=== PATIENT | female | born 1950 | race Caucasian/White ===

== ENCOUNTER → 2016-10-31 | Outpatient (CLI) | payer MEDICARE, BC | END | disposition home or self-care (01) | LOC: GMAB 14:12 | PROVIDERS: ATTEND Family Medicine | DX: R53.83 Other fatigue (principal) ==

== ENCOUNTER → 2017-05-02 | Outpatient (CLI) | payer BC, MEDICARE | LOC: GMAB 15:30 | PROVIDERS: ATTEND Family Medicine | DX: Z79.899 Other long term (current) drug therapy (principal) ==

== ENCOUNTER 2017-06-01 15:01 | Emergency (ER) | payer MEDICARE ==
[2017-06-01 15:22] VITALS: TEMP 98.2
--- NOTE | 2017-06-01 15:39 | ED.PDOC ---
History of Present Illness - General Chief Complaint: Neuro Symptoms/Deficits Stated Complaint: twitching/frequent fall Time Seen by Provider: 06/01/17 15:36 Source: family - Exam Limitations: no limitations - History of Present Illness Initial Comments: Carmella Manuel 67 y/o female brought by after she had been twitching more often and also noted have unsteady gait and almost falling sometimes with hand tremor/twitching almost drop a cup . noticed last month went to see her neurologist and was told she was doing fine.Has Parkinsons and dementia Timing/Duration: getting worse Severity: moderate Improving Factors: nothing Worsening Factors: other - has parkinsons Associated Symptoms: other - see hpi Allergies/Adverse Reactions: Allergies NO KNOWN ALLERGY Allergy (Verified 11/12/14 07:18) Home Medications: Ambulatory Orders Donepezil Hydrochloride [Aricept] 10 mg PO BEDTIME 10/27/14 Venlafaxine HCl [Venlafaxine HCl ER] 37.5 mg PO BID 10/27/14 Lubiprostone [Amitiza] 24 mcg PO BID 10/28/14 Carbidopa-Levodopa [Carbidopa/Levodopa 25-100 mg] 2 tab PO TID 11/03/14 Polyethylene Glycol 3350 [Miralax] 17 gm PO DAILY #0 pckt 11/03/14 Pravastatin Sodium [Pravastatin Sodium] 20 mg PO DAILY 06/01/17 Prazosin HCl [Prazosin HCl] 2 mg PO DAILY 06/01/17 Review of Systems - Review of Systems Constitutional: States: no symptoms reported EENTM: States: no symptoms reported Cardiology: States: no symptoms reported Neurological: States: see HPI, other - parkinsons/dementia Unable to Obtain Due To: dementia All other Systems: Reviewed and Negative, No Change from Baseline Past Medical History (General) - Patient Medical History Hx Seizures: No Hx Stroke: No Hx Dementia: Yes Hx Asthma: No Hx of COPD: No Hx Cardiac Disorders: Yes - hypercholesterolemia Hx Congestive Heart Failure: No Hx Pacemaker: No Hx Hypertension: Yes Hx Thyroid Disease: No Hx Diabetes: No Hx Cancer: No Hx MRSA: No - Vaccination History Hx Tetanus, Diphtheria Vaccination: No Hx Influenza Vaccination: No Hx Pneumococcal Vaccination: Yes - 2017 - Social History Hx Tobacco Use: No Hx Alcohol Use: No Hx Substance Use: No Hx Physical Abuse: No Hx Emotional Abuse: No Family Medical History - Family History Mother Family History: No Known Living Status: Hx Family Stroke: Yes Hx Family;Other: Parkinson's Father Family History: Unknown Living Status: Hx Family Cancer: Yes Physical Exam - Physical Exam General Appearance: Alert, No apparent distress, Well Groomed Eye Exam: bilateral normal Ears, Nose, Throat: hearing grossly normal, normal ENT inspection Neck: non-tender, full range of motion, supple Respiratory: lungs clear, normal breath sounds, no respiratory distress Cardiovascular/Chest: normal peripheral pulses, regular rate, rhythm, no murmur Peripheral Pulses: radial,right: 2+, radial,left: 2+ Gastrointestinal/Abdominal: normal bowel sounds, non tender, soft, no organomegaly Back Exam: no CVA tenderness, no vertebral tenderness Extremity: non-tender, no pedal edema, no calf tenderness Neurologic: 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 II-XII nml as tested, no motor/sensory deficits, alert, disoriented x 3 - place, other - negative pronator drift;visible tremors and twitching arms amd lower extremities Progress - Progress Progress: 06/01/17 16:47 Vital Signs - 8 hr 06/01/17 06/01/17 15:14 16:09 Temperature 98.2 F Pulse Rate [ 75 84 Left Radial] Respiratory 18 18 Rate Blood Pressure 150/89 112/87 [Left Arm] O2 Sat by Pulse 95 93 L Oximetry 06/01/17 17:26 Able to walk to the bathroom assisting her - Results/Orders Results/Orders: 06/01/17 15:46 URINALYSIS Stat 06/01/17 16:00 EKG STAT Laboratory Results - last 24 hr 06/01/17 16:18 WBC 6.1 RBC 4.64 Hgb 12.9 Hct 38.3 MCV 82.6 MCH 27.8 MCHC 33.7 RDW 13.4 Plt Count 246 MPV 7.2 L Absolute Neuts (auto) 3.80 Absolute Lymphs (auto) 1.70 Absolute Monos (auto) 0.40 Absolute Eos (auto) 0.10 Absolute Basos (auto) 0.00 Neutrophils % 63.2 Lymphocytes % 28.4 Monocytes % 6.8 Eosinophils % 0.9 L Basophils % 0.7 PT 12.6 H INR 1.120 PTT (SP) 32.7 Sodium 140 Potassium 3.7 Chloride 105 Carbon Dioxide 28 Anion Gap 10.7 L BUN 20 H Creatinine 0.77 BUN/Creatinine Ratio 26.0 H Random Glucose 100 Serum Osmolality 282.1 Calcium 9.5 Magnesium 2.2 Total Bilirubin 0.7 Direct Bilirubin < 0.1 Indirect Bilirubin 0.6 AST 18 ALT < 8 L Alkaline Phosphatase 63 Creatine Kinase 109 CK-MB (CK-2) 1.8 CK-MB (CK-2) % Not Reportable Troponin I < 0.02 Serum Total Protein 6.8 Albumin 4.0 - EKG/XRAY/CT EKG: Sinus Comments: HR-73;short pr XRAY: shoulder no fracture - no acute abnormality CT Ordered: Yes - head -no acute intracranial abnormality Departure - Departure Clinical Impression: Muscle twitch, Pill rolling tremors, History of Parkinson's disease Dementia in Parkinson's disease Qualifiers: Dementia behavioral disturbance: without behavioral disturbance Qualified Code( s): G20 - Parkinson's disease; F02.80 - Dementia in other diseases classified elsewhere without behavioral disturbance Time of Disposition: 17:46 Disposition: Discharge to Home or Self Care Condition: Fair Departure Forms: ED Discharge - Pt. Copy, Patient Portal Self Enrollment Referrals: Eulalio Rayo MD [Primary Care Provider] - 1-2 Weeks Home Medications: Ambulatory Orders Donepezil Hydrochloride [Aricept] 10 mg PO BEDTIME 10/27/14 Venlafaxine HCl [Venlafaxine HCl ER] 37.5 mg PO BID 10/27/14 Lubiprostone [Amitiza] 24 mcg PO BID 10/28/14 Carbidopa-Levodopa [Carbidopa/Levodopa 25-100 mg] 2 tab PO TID 11/03/14 Polyethylene Glycol 3350 [Miralax] 17 gm PO DAILY #0 pckt 11/03/14 Pravastatin Sodium [Pravastatin Sodium] 20 mg PO DAILY 06/01/17 Prazosin HCl [Prazosin HCl] 2 mg PO DAILY 06/01/17 Additional Instructions: Return to emergency room as needed;Need to call up neurologist 06/04 2017 for follow up
--- NOTE | 2017-06-01 16:29 | RAD ---
EXAM DESCRIPTION: Chest,1 View CLINICAL HISTORY: History of Parkinson disease and fall COMPARISON: Chest radiograph dated October 28, 2014 IMPRESSION: Single upright portable AP view of the chest. Low lung volumes with associated bronchovascular crowding. Cardiac silhouette and pulmonary vascularity are within normal limits. Calcific atherosclerosis noted of the thoracic aorta. Linear opacities within the bilateral lung bases most likely represent atelectasis. Underlying infiltrate cannot be excluded. No significant pleural effusion. No pneumothorax. The left shoulder joint is incompletely imaged. Question of artifact versus minimally displaced fracture of the acromion/left scapula, partially imaged. Please correlate for tenderness versus trauma to the left shoulder joint. Electronically signed by: Ozzie Del Real MD 06/01/2017 4:29 PM CDT
--- NOTE | 2017-06-01 16:39 | CT ---
EXAM DESCRIPTION: CT-Head-CT head without contrast. CLINICAL HISTORY: fall. Head injury. COMPARISON: None available TECHNIQUE: Multiple axial images of the head without contrast. Multiplanar reformatted images. This exam was performed according to our departmental dose-optimization program, which includes automated exposure control, adjustment of the mA and/or kV according to patient size and/or use of iterative reconstruction technique. FINDINGS: There is no CT evidence of intracranial hemorrhage, mass effect, or large territory infarction. Mild generalized volume loss. Mild patchy supratentorial white matter hypodensities. There are no abnormal extra-axial fluid collections. Vascular structures are unremarkable. There is no acute calvarial defect. Visualized portions of the right maxillary sinus are completely opacified. The mastoid air cells are clear. IMPRESSION: 1. No CT evidence of an acute intracranial abnormality. 2. Mild senescent changes. 3. Opacified right maxillary sinus. Electronically signed by: Chas Reardon MD 06/01/2017 4:38 PM CDT
--- NOTE | 2017-06-01 16:55 | RAD ---
EXAM DESCRIPTION: Shoulder,Left 2 or More Views CLINICAL HISTORY: fall COMPARISON: None Available. TECHNIQUE: Two views of the left shoulder. FINDINGS: Post submitted views are internal rotation. A true external rotation view is needed versus transaxillary or transscapular Y views. There is no fracture or dislocation. There are no significant degenerative changes observed. AC joint appears intact. No focal bone lesion. IMPRESSION: No definite fracture or dislocation on internal rotation views of the left shoulder. See above. Electronically signed by: Korey Bailey MD 06/01/2017 4:54 PM CDT
[2017-06-01 18:10] VITALS: BP 114/82; O2SAT 94
== END 2017-06-01 18:22 | disposition home or self-care (01) ==
LOC: ER 15:01
DX: G31.83 Neurocognitive disorder with Lewy bodies (principal); F02.80 Dementia in other diseases classified elsewhere, unspecified severity, without behavioral disturbance, psychotic disturbance, mood disturbance, and anxiety; E78.00 Pure hypercholesterolemia, unspecified; I10 Essential (primary) hypertension; R26.81 Unsteadiness on feet; Z79.899 Other long term (current) drug therapy

== ENCOUNTER 2017-06-08 12:45 | Emergency (ER) | payer MEDICARE ==
[2017-06-08 13:02] VITALS: TEMP 97.5
--- NOTE | 2017-06-08 13:05 | ED.PDOC ---
History of Present Illness - General Chief Complaint: Neuro Symptoms/Deficits Stated Complaint: confusion Time Seen by Provider: 06/08/17 12:56 Source: patient Exam Limitations: no limitations - History of Present Illness Timing/Duration: 1 hour - [employer] Severity: moderate Improving Factors: nothing Worsening Factors: nothing Associated Symptoms: other - NONE REPORTED BY HER Allergies/Adverse Reactions: Allergies NO KNOWN ALLERGY Allergy (Verified 06/08/17 13:02) Home Medications: Ambulatory Orders Donepezil Hydrochloride [Aricept] 10 mg PO BEDTIME 10/27/14 Venlafaxine HCl [Venlafaxine HCl ER] 37.5 mg PO BID 10/27/14 Lubiprostone [Amitiza] 24 mcg PO BID 10/28/14 Carbidopa-Levodopa [Carbidopa/Levodopa 25-100 mg] 2 tab PO TID 11/03/14 Polyethylene Glycol 3350 [Miralax] 17 gm PO DAILY #0 pckt 11/03/14 Pravastatin Sodium [Pravastatin Sodium] 20 mg PO DAILY 06/01/17 Prazosin HCl [Prazosin HCl] 2 mg PO DAILY 06/01/17 Past Medical History (General) - Patient Medical History Hx Seizures: No Hx Stroke: No Hx Dementia: Yes Hx Asthma: No Hx of COPD: No Hx Cardiac Disorders: Yes - hypercholesterolemia Hx Congestive Heart Failure: No Hx Pacemaker: No Hx Hypertension: Yes Hx Thyroid Disease: No Hx Diabetes: No Hx Cancer: Yes - skin Hx MRSA: No Surgical History: other - Vaccination History Hx Tetanus, Diphtheria Vaccination: No Hx Influenza Vaccination: No Hx Pneumococcal Vaccination: Yes - 2017 - Social History Hx Tobacco Use: No Hx Alcohol Use: No Hx Substance Use: No Hx Physical Abuse: No Hx Emotional Abuse: No Family Medical History - Family History Mother Family History: No Known Living Status: Hx Family Stroke: Yes Hx Family;Other: Parkinson's Father Family History: Unknown Living Status: Hx Family Cancer: Yes Progress - EKG/XRAY/CT XRAY: chest - MARILEE Departure - Departure Clinical Impression: Parkinson disease Dementia Qualifiers: Dementia type: Parkinson's disease Dementia behavioral disturbance: without behavioral disturbance Qualified Code(s): G20 - Parkinson's disease; F02.80 - Dementia in other diseases classified elsewhere without behavioral disturbance Time of Disposition: 15:21 Disposition: Discharge to Home or Self Care Condition: Fair Departure Forms: ED Discharge - Pt. Copy, Patient Portal Self Enrollment Instructions: Lewy Body Disease Referrals: Eulalio Rayo MD [Primary Care Provider] - 1-2 Weeks Home Medications: Ambulatory Orders Donepezil Hydrochloride [Aricept] 10 mg PO BEDTIME 10/27/14 Venlafaxine HCl [Venlafaxine HCl ER] 37.5 mg PO BID 10/27/14 Lubiprostone [Amitiza] 24 mcg PO BID 10/28/14 Carbidopa-Levodopa [Carbidopa/Levodopa 25-100 mg] 2 tab PO TID 11/03/14 Polyethylene Glycol 3350 [Miralax] 17 gm PO DAILY #0 pckt 11/03/14 Pravastatin Sodium [Pravastatin Sodium] 20 mg PO DAILY 06/01/17 Prazosin HCl [Prazosin HCl] 2 mg PO DAILY 06/01/17
--- NOTE | 2017-06-08 13:49 | CT ---
EXAM DESCRIPTION: Head: Computed Tomography. CLINICAL HISTORY: AMS COMPARISON: CT scan of the head without contrast 06/01/2017. TECHNIQUE: Non-helical axial scans through the skull and brain, at 5.0 mm intervals, non-contrast. 2.5 mm axial reconstructions. 2.0 mm coronal and sagittal reconstructions. Total Exam DLP: 859.97 mGy-cm. This exam was performed according to our departmental dose-optimization program which includes automated exposure control, adjustment of the mA and/or kV according to patient size and/or use of iterative reconstruction technique; to reduce radiation dose to as low as reasonably achievable (ALARA). FINDINGS: No hemorrhage, no mass-effect, and no midline shift. Minimum bilateral periventricular regions of decreased density of the white matter, relatively symmetric. No abnormal radiodense material in the brain parenchyma. Vascular calcifications not present; physiologic calcifications in the pineal gland and choroid plexus. No effacement or displacement of the ventricles, CSF spaces, or subdural spaces. No extra axial fluid collection or hemorrhage. No gross abnormalities of the bony calvarium. Minimal volume and almost complete opacification of the right maxillary antrum. Marika bullosa in the bilateral middle turbinates. Right septal deviation. Maintaining paranasal sinuses and mastoid air cells are unremarkable. IMPRESSION: 1. No hemorrhage, no mass effect, no midline shift. . 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 Stable since prior and CT scan one week ago. Also stable chronic/acute right maxillary sinusitis and other paranasal sinus abnormalities. 2. CT scans are insensitive for detecting small CVAs in the first 24 hours after onset. Evaluation of the brain stem is also limited. If symptoms persist, consider MRI scan of the brain with diffusion imaging. Electronically signed by: Jeronimo Dc MD 06/08/2017 1:47 PM CDT
--- NOTE | 2017-06-08 14:25 | RAD ---
EXAM DESCRIPTION: Chest,1 View CLINICAL HISTORY: AMS COMPARISON: Portable upright chest 06/01/2017. CT scan of the head without contrast today. TECHNIQUE: AP portable taken at 1311 hours, upright position. FINDINGS: No acute infiltrate or pleural effusion. No pneumothorax. Cardiopulmonary vascular structures are unremarkable. No gross bony thoracic abnormalities. IMPRESSION: No radiographic evidence of acute cardiopulmonary disease. Electronically signed by: Jeronimo Dc MD 06/08/2017 2:23 PM CDT
[2017-06-08 14:32] VITALS: BP 146/71; O2SAT 97
== END 2017-06-08 15:30 | disposition home or self-care (01) ==
LOC: ER 12:45
DX: G20 Parkinson's disease (principal); F02.80 Dementia in other diseases classified elsewhere, unspecified severity, without behavioral disturbance, psychotic disturbance, mood disturbance, and anxiety; I10 Essential (primary) hypertension; E78.00 Pure hypercholesterolemia, unspecified; Z85.828 Personal history of other malignant neoplasm of skin

== ENCOUNTER → 2017-06-13 | Outpatient (CLI) | payer MEDICARE ==
--- NOTE | 2017-06-14 15:50 | US ---
THYROID ULTRASOUND CLINICAL INFORMATION: Thyroid nodule TECHNIQUE: Thyroid sonography was performed. COMPARISON: None FINDINGS: Thyroid size: Right lobe measures 4.5 x 1.5 x 2.1 cm. Left lobe measures 3.9 x 0.9 x 2 cm. Isthmic thickness in the midline is 2.6 mm. Texture: Coarse texture with nodules. Estimated total number of nodules >/=1 cm: 1 Right In the inferior right thyroid lobe, a mixed cystic and solid nodule with few punctate calcifications measures 1.4 x 1.6 x 1.3 cm. Fine-needle aspiration biopsy should be considered for a nodule of this size, especially with potential internal microcalcifications. Small nodule in the upper right thyroid lobe measures 0.7 x 0.5 x 0.3 cm. This could be followed. Hypoechoic lesion along the posterior aspect of the right thyroid lobe may be intrathyroidal consistent with another nodule 6 mm in greatest dimension. Alternatively this could be a small parathyroid adenoma. Correlate with serum calcium values. Left Small posterior inferior left thyroid nodule measures 0.6 x 0.3 x 0.3 cm. Another tiny nodule closely adjacent measures 3 mm in greatest dimension. No dominant nodule in the left lobe. No anterior cervical adenopathy is seen on the submitted images. IMPRESSION: Dominant cystic and solid nodule with few microcalcifications in the inferior right thyroid lobe measuring 1.6 cm in greatest dimension. Further evaluation is recommended as discussed above. Electronically signed by: Korey Bailey MD 06/14/2017 3:47 PM CDT
== END ==
LOC: US 14:36
PROVIDERS: ATTEND Family Medicine
DX: E04.1 Nontoxic single thyroid nodule (principal)

== ENCOUNTER → 2018-02-18 | Outpatient (CLI) | payer MEDICARE | LOC: GMAE 16:39 | PROVIDERS: ATTEND Family Medicine | DX: E78.2 Mixed hyperlipidemia (principal) ==

== ENCOUNTER → 2020-02-18 | Outpatient (CLI) | payer MEDICARE | LOC: BFHH 09:20 | PROVIDERS: ATTEND Family Medicine | DX: N39.0 Urinary tract infection, site not specified (principal) ==

== ENCOUNTER 2020-02-25 10:08 | Emergency (ER) | payer MEDICARE ==
--- NOTE | 2020-02-25 10:37 | RAD ---
EXAM DESCRIPTION: Chest,1 View CLINICAL HISTORY: 69 years Female, SOB COMPARISON: 06/08/2017 TECHNIQUE: Single view radiograph of the chest. IMPRESSION: Normal size cardiac silhouette. Airspace opacity in the right greater than left midlungs likely representing multifocal pneumonia versus viral infection. No pleural effusion or pneumothorax. Thoracic spondylosis. Electronically signed by: Rainer Andrade MD 02/25/2020 10:36 AM [facility]
[2020-02-25] MEDS ORDERED: cefTRIAXone SODIUM 2 GM in SODIUM CHL 0.9% 100ML MINI-BAG 100 ML IVPB ONE (10:57)
[2020-02-25] MEDS ORDERED: AZITHROMYCIN IV 500 MG in SODIUM CHLORIDE 0.9% 250ML 250 ML IVPB ONE (10:57)
--- NOTE | 2020-02-25 11:01 | ED.PDOC ---
History of Present Illness - General Chief Complaint: Respiratory Problem Time Seen by Provider: 02/25/20 10:15 Source: RN notes reviewed, EMS notes reviewed, family Exam Limitations: clinical condition - History of Present Illness Initial Comments: PATIENT HAS END STAGE PARKINSON'S DEMENTIA AND NOW HAS COVID-19. HAS BEEN GETTING HOSPICE CARE AT HOME. NOW SENT FOR DECREASING O2 SATS AT HOME INTO THE 80'S ON ROOM AIR. FEELS HE CAN NO LONGER CARE FOR HER AT HOME AND REQUEST SKILLED NURSING ADMISSION. Severity: moderate Activities at Onset: none Possible Cause: no prior episodes Improving Factors: nothing Associated Symptoms: denies symptoms Respiratory Risk Factors: no cause identified Allergies/Adverse Reactions: Allergies NO KNOWN ALLERGY Allergy (Verified 06/08/17 13:02) Home Medications: Ambulatory Orders Donepezil Hydrochloride [Aricept] 10 mg PO BEDTIME 10/27/14 Venlafaxine HCl [Venlafaxine HCl ER] 37.5 mg PO BID 10/27/14 Lubiprostone [Amitiza] 24 mcg PO BID 10/28/14 Carbidopa-Levodopa [Carbidopa/Levodopa 25-100 mg] 2 tab PO TID 11/03/14 Polyethylene Glycol 3350 [Miralax] 17 gm PO DAILY #0 pckt 11/03/14 Pravastatin Sodium 20 mg PO DAILY 06/01/17 Prazosin HCl 2 mg PO DAILY 06/01/17 Review of Systems - Review of Systems Constitutional: States: chills, fever EENTM: States: nose congestion Respiratory: States: cough, short of breath Cardiology: States: no symptoms reported Gastrointestinal/Abdominal: States: no symptoms reported Genitourinary: States: no symptoms reported Musculoskeletal: States: see HPI Skin: States: no symptoms reported Neurological: States: see HPI Endocrine: States: no symptoms reported Hematologic/Lymphatic: States: no symptoms reported Unable to Obtain Due To: dementia Past Medical History (General) - Patient Medical History Hx Seizures: No Hx Stroke: No Hx Dementia: Yes Hx Asthma: No Hx of COPD: No Hx Cardiac Disorders: Yes - hypercholesterolemia Hx Congestive Heart Failure: No Hx Pacemaker: No Hx Hypertension: Yes Hx Thyroid Disease: No Hx Diabetes: No Hx Cancer: Yes - skin Hx MRSA: No - Vaccination History Hx Tetanus, Diphtheria Vaccination: No Hx Influenza Vaccination: No Hx Pneumococcal Vaccination: Yes - 2017 - Social History Hx Tobacco Use: No Hx Alcohol Use: No Hx Substance Use: No Hx Physical Abuse: No Hx Emotional Abuse: No Family Medical History - Family History Mother Family History: No Known Living Status: Hx Family Stroke: Yes Hx Family;Other: Parkinson's Father Family History: Unknown Living Status: Hx Family Cancer: Yes Physical Exam - Physical Exam General Appearance: Emaciated, Frail, Lethargic, Ill Appearing Eyes, Ears, Nose, Throat Exam: PERRL/EOMI, normal ENT inspection, TMs normal, pharynx normal Progress - Progress Progress: 02/25/20 10:59 PATIENT WITH ADVANCED PARKINSON'S DEMENTIA CURRENTLY ON HOSPICE AND NOW ALSO WITH COVID-19 AND REDUCED O2 SATURATION THIS MORNING, SENT TO HOSPITAL BY . AWARE OF HER POOR PROGNOSIS AND THAT SHE IS LIKELY TO NOT DO WELL NO MATTER WHAT. AT THIS POINT, O2 AND COMFORTIVE CARE IS MOST APPROPRIATE FOR THIS PATIENT. WE ARE CURRENTLY IN THE MIST OF THE PEAK OF THE COVID PANDEMIC AND THERE ARE NO HOSPITAL BEDS AVAILABLE REGION WIDE. THE MOST COMPASIONATE CARE FOR THIS PATIENT IS ABOVE. Departure - Departure Clinical Impression: COVID-19, Dementia in Parkinson's disease, Parkinson disease, Low O2 saturation Time of Disposition: 13:05 Disposition: Discharge to Home for HH Condition: Poor Departure Forms: ED Discharge - Pt. Copy, Patient Portal Self Enrollment Referrals: Eulalio Rayo MD [Primary Care Provider] - 1-2 Weeks Home Medications: Ambulatory Orders Donepezil Hydrochloride [Aricept] 10 mg PO BEDTIME 10/27/14 Venlafaxine HCl [Venlafaxine HCl ER] 37.5 mg PO BID 10/27/14 Lubiprostone [Amitiza] 24 mcg PO BID 10/28/14 Carbidopa-Levodopa [Carbidopa/Levodopa 25-100 mg] 2 tab PO TID 11/03/14 Polyethylene Glycol 3350 [Miralax] 17 gm PO DAILY #0 pckt 11/03/14 Pravastatin Sodium 20 mg PO DAILY 06/01/17 Prazosin HCl 2 mg PO DAILY 06/01/17
[2020-02-25 14:48] VITALS: O2SAT 93
[2020-02-25 15:00] VITALS: TEMP 97.9
[2020-02-25 15:04] VITALS: BP 114/66
== END 2020-02-25 14:00 | disposition home health service (06) ==
LOC: ER 10:08
DX: U07.1 COVID-19 (principal); R09.02 Hypoxemia; G20 Parkinson's disease; F02.80 Dementia in other diseases classified elsewhere, unspecified severity, without behavioral disturbance, psychotic disturbance, mood disturbance, and anxiety; I10 Essential (primary) hypertension; E78.00 Pure hypercholesterolemia, unspecified; Z85.828 Personal history of other malignant neoplasm of skin; Z79.899 Other long term (current) drug therapy
CPT/HCPCS: 36415; 36600; 71045; 80053; 82803; 82805; 83605; 85025; 85379; 86140; 87040; J0456; J0696; J7050